=== PATIENT | male | born 1935 | race Caucasian/White ===

== ENCOUNTER 2019-09-18 09:59 | Emergency (ER) | payer MEDICARE, OTHER ==
[~2019-09-18] VITALS: Ht 193 cm; Wt 97.7 kg
[2019-09-18] MEDS ORDERED: ONDANSETRON HCL INJ 2MG/ML 2ML 2 MG/ML VIAL IV ONE (10:20)
--- NOTE | 2019-09-18 10:20 | NUR ---
[facility] called to transport pt to CT at [facility]
--- NOTE | 2019-09-18 10:24 | Emergency Department Note ---
History of Present Illnes History of Present Illness Chief Complaint: Genitourinary History of Present Illness This is a 84 year old male . 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 Onset (how long ago): week(s) (1 week ) Radiation: Reports back, Reports flank Severity: mild Onset quality: sudden Duration (how long): week(s) Timing of current episode: constant Progression: unchanged Chronicity: new Context: Denies recent illness, Denies recent surgery, Denies recent immobilization, Denies recent travel, Denies trauma/injury, Denies new medications, Denies hx of DVT/PE, Denies non-compliance w/ medications, Denies other Relieving factors: none Exacerbating factors: none Associated symptoms: Denies fever/chills, Denies nausea/vomiting Treatments prior to arrival: none Past Medical/Family History Physician Review I have reviewed the patient's past medical and family history. Any updates have been documented here. Past Medical History Recent Fever: No Clinical Suspicion of Infectio: No New/Unexplained Change in Ment: No Past Medical History: Hypertension, Diabetes, Kidney Stones Other Medical History: HLD, Hypothyroidism Past Surgical History: Hip Replacement Social History Smoking Cessation: Never Smoker Alcohol Use: None Any Illegal Drug Use: No Review of Systems Review of Systems Constitutional: Denies fever Gastrointestinal: Reports diarrhea; Denies abdominal pain Genitourinary: Reports dysuria, Reports frequency, Reports pain; Denies hematuria Musculoskeletal: Reports back pain Review of other systems: All other systems negative Physical Exam Related Data Allergies: Coded Allergies: No Known Allergies (Unverified , 09/18/19) Vital signs reviewed: Yes Physical Exam CONSTITUTIONAL Constitutional: Present well-developed HENT HENT: Present normocephalic EYES Eyes: Reports conjunctivae normal NECK Neck: Present supple PULMONARY Pulmonary: Present breath sounds normal CARDIOVASCULAR Cardiovascular: Present irregular rhythm GASTROINTESTINAL Abdominal: Present soft GENITOURINARY SKIN Skin: Present warm MUSCULOSKELETAL Musculoskeletal: Absent edema NEUROLOGICAL Neurological: Present alert PSYCHOLOGICAL Psychological: Present mood/affect normal Results Laboratory Laboratory UA pos Nitr, Le Pos, blood small CBC Normal CMP Normal except Gluc 137 Lab results reviewed: Yes Imaging Imaging results reviewed: Yes Impressions EXAM: CT Abdomen and Pelvis WITHOUT contrast INDICATION: pain COMPARISON: None. TECHNIQUE: Abdomen and pelvis were scanned utilizing a multidetector helical scanner from the lung base to the pubic symphysis without administration of IV contrast. Absence of intravenous contrast decreases sensitivity for detection of focal lesions and vascular pathology. Coronal and sagittal reformations were obtained. Routine protocol was performed. IV CONTRAST: None ORAL CONTRAST: Water COMPLICATIONS: None RADIATION DOSE: Total DLP: 664.23 mGy-cm Estimated effective dose: (DLP x 0.015 x size factor) mSv CTDIvol has been reviewed. It is below the limits set by the Radiation Protocol Committee (RPC). FINDINGS: LINES and TUBES: None. LOWER THORAX: Right basilar linear atelectasis are seen. There is a right lower lobe calcified granuloma (series 3, image 28) and left lower lobe calcified granuloma (image 1). Additionally there is a 1 cm soft tissue nodule in the right lung base (series 3, image 41) containing a faint foci of central calcification could represent a hamartoma. HEPATOBILIARY: No focal hepatic lesions. No biliary ductal dilation. GALLBLADDER: There are stones in the gallbladder. There is no gallbladder wall thickening or signs of acute cholecystitis. SPLEEN: No splenomegaly.. Multiple calcified granulomas are seen in the spleen PANCREAS: The unenhanced pancreas shows no focal masses. There is no ductal dilatation. ADRENALS: There is a left adrenal thickening with no discrete nodule noted. The right adrenal gland is normal. KIDNEYS/URETERS: Dystrophic calcifications are seen in the right renal capsule. There are two 0.9 cm nonobstructive right renal calculus. No hydronephrosis. No cystic or solid mass lesions. No stones. GI TRACT: No abnormal distention, wall thickening, or evidence of bowel obstruction. There are multiple diverticula within the colon without evidence of diverticulitis. PELVIC ORGANS/BLADDER: The bladder is unremarkable. LYMPH NODES: No lymphadenopathy. VESSELS: There is moderate atherosclerotic disease in the aorta and major arterial branches. PERITONEUM / RETROPERITONEUM: No free air or fluid. BONES: There are degenerative changes in the spine. Status post left hip arthroplasty SOFT TISSUES: There is a small bowel containing right inguinal hernia with no evidence of obstruction. There is a small fat-containing left inguinal hernia. IMPRESSION: 1. Two 0.9 cm nonobstructive right renal calculus. No hydroureteronephrosis. 2. Dystrophic calcifications are seen in the right renal capsule of uncertain etiology likely due to prior injury or infection. 3. Cholelithiasis with no evidence of cholecystitis. 4. Bowel containing small right inguinal hernia with no evidence of obstruction or active complication. Small fat-containing left inguinal hernia. 5. Colonic diverticulosis with no evidence of diverticulitis. 6. Bibasilar discoid atelectasis and calcified granulomas. A 1 cm soft tissue nodule in the right lung base containing a faint foci of central calcification could represent a hamartoma. Signed by: Tanner Beverly MD on 09/18/2019 11:51 AM Dictated By: TANNER BEVERLY MD 115 Transcribed By: MARCY on 09/18/19 115 Assessment & Plan Medical Decision Making MDM UTI, pyelo, stones, diverticulitis Assessment & Plan Final Impression: (1) Urinary tract infection (2) Pyelonephritis Depart Disposition: HOME, SELF-FDC Meds Active Scripts Sulfamethoxazole/Trimethoprim (BACTRIM DS TABLET) 1 Each Tablet, 1 EACH PO BID for 10 Days, #20 Prov:BALTAZAR HUI MD 09/18/19 BALTAZAR HUI MD Sep 18, 2019 10:24
[2019-09-18] MEDS ORDERED: SODIUM CHLORIDE 0.9% 500ML 500 ML IV ONE (10:30)
[2019-09-18] MEDS ORDERED: CEFTRIAXONE SOD 1 GM/NS 50 ML 50 ML IV ONE ×2 (10:30→10:42)
[2019-09-18] MEDS ORDERED: SODIUM CHLORIDE 0.9% 500ML 500 ML ONE (10:42)
[2019-09-18] MEDS ORDERED: ONDANSETRON HCL INJ 2MG/ML 2ML 2 MG/ML VIAL ONE (10:42)
--- NOTE | 2019-09-18 10:46 | NUR ---
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
--- NOTE | 2019-09-18 11:55 | Diagnostic Imaging Report ---
EXAM: CT Abdomen and Pelvis WITHOUT contrast INDICATION: pain COMPARISON: None. TECHNIQUE: Abdomen and pelvis were scanned utilizing a multidetector helical scanner from the lung base to the pubic symphysis without administration of IV contrast. Absence of intravenous contrast decreases sensitivity for detection of focal lesions and vascular pathology. Coronal and sagittal reformations were obtained. Routine protocol was performed. IV CONTRAST: None ORAL CONTRAST: Water COMPLICATIONS: None RADIATION DOSE: Total DLP: 664.23 mGy-cm Estimated effective dose: (DLP x 0.015 x size factor) mSv CTDIvol has been reviewed. It is below the limits set by the Radiation Protocol Committee (RPC). FINDINGS: LINES and TUBES: None. LOWER THORAX: Right basilar linear atelectasis are seen. There is a right lower lobe calcified granuloma (series 3, image 28) and left lower lobe calcified granuloma (image 1). Additionally there is a 1 cm soft tissue nodule in the right lung base (series 3, image 41) containing a faint foci of central calcification could represent a hamartoma. HEPATOBILIARY: No focal hepatic lesions. No biliary ductal dilation. GALLBLADDER: There are stones in the gallbladder. There is no gallbladder wall thickening or signs of acute cholecystitis. SPLEEN: No splenomegaly.. Multiple calcified granulomas are seen in the spleen PANCREAS: The unenhanced pancreas shows no focal masses. There is no ductal dilatation. ADRENALS: There is a left adrenal thickening with no discrete nodule noted. The right adrenal gland is normal. KIDNEYS/URETERS: Dystrophic calcifications are seen in the right renal capsule. There are two 0.9 cm nonobstructive right renal calculus. No hydronephrosis. No cystic or solid mass lesions. No stones. GI TRACT: No abnormal distention, wall thickening, or evidence of bowel obstruction. There are multiple diverticula within the colon without evidence of diverticulitis. PELVIC ORGANS/BLADDER: The bladder is unremarkable. LYMPH NODES: No lymphadenopathy. VESSELS: There is moderate atherosclerotic disease in the aorta and major arterial branches. PERITONEUM / RETROPERITONEUM: No free air or fluid. BONES: There are degenerative changes in the spine. Status post left hip arthroplasty SOFT TISSUES: There is a small bowel containing right inguinal hernia with no evidence of obstruction. There is a small fat-containing left inguinal hernia. IMPRESSION: 1. Two 0.9 cm nonobstructive right renal calculus. No hydroureteronephrosis. 2. Dystrophic calcifications are seen in the right renal capsule of uncertain etiology likely due to prior injury or infection. 3. Cholelithiasis with no evidence of cholecystitis. 4. Bowel containing small right inguinal hernia with no evidence of obstruction or active complication. Small fat-containing left inguinal hernia. 5. Colonic diverticulosis with no evidence of diverticulitis. 6. Bibasilar discoid atelectasis and calcified granulomas. A 1 cm soft tissue nodule in the right lung base containing a faint foci of central calcification could represent a hamartoma. Signed by: Tanner Potts MD on 09/18/2019 11:51 AM
[2019-09-18] MEDS ORDERED: BACTRIM DS TAB1 EACH PO (12:01)
[2019-09-18 13:09] VITALS: BP 151/72
[2019-09-18] MEDS ORDERED: ELIQUIS2.5 MG (13:19)
[2019-09-18] MEDS ORDERED: CAPTOPRIL12.5 MG (13:19)
[2019-09-18] MEDS ORDERED: METFORMIN HCL500 MG PO (13:19)
[2019-09-18] MEDS ORDERED: METOPROLOL SUCC25 MG (13:19)
[2019-09-18] MEDS ORDERED: SYNTHROID50 MCG PO (13:19)
[2019-09-18] MEDS ORDERED: ATORVASTATIN CA10 MG PO (13:19)
== END 2019-09-18 12:23 | disposition home or self-care (01) ==
LOC: FSED 10:23
DX: N39.0 Urinary tract infection, site not specified (principal); N20.0 Calculus of kidney; M54.5 Low back pain; K80.20 Calculus of gallbladder without cholecystitis without obstruction; K57.90 Diverticulosis of intestine, part unspecified, without perforation or abscess without bleeding; R91.8 Other nonspecific abnormal finding of lung field; I10 Essential (primary) hypertension; E11.9 Type 2 diabetes mellitus without complications
CPT/HCPCS: 74176; 80053; 81003; 85025; 87086; 87186; 96374; 99284; J0696; J2405; J7040